=== PATIENT | male | born 1955 | race Caucasian/White ===

== ENCOUNTER → 2020-07-05 | Day surgery (SDC) | payer OTHER ==
[~2020-07-05] VITALS: Ht 180.3 cm; Wt 81.6 kg
[~2020-07-05] MED LIST: CRESTOR10 MG PO; ECOTRIN81 MG PO; FERROUS SULFAT325 MG PO; FISH OIL 1,0001 EAC1 PO; FOLIC ACID 1 MG1 MG PO; KEFLEX CAP 500500 MG PO; LEVOTHYROXINE137 MC1 PO; NIACIN1000 MG PO; PLAVIX75 MG PO; POTASSIUM99 M1 PO; VITAMIN D21250 MCG PO
[2020-07-05 07:05] LABS: RED BLOOD COUNT 5.66 M/UL (4.20-5.50); WHITE BLOOD COUNT 11.2 K/UL (4.5-11.0)
[2020-07-05 07:24] LABS: BUN/CREATININE RATIO 14 (0-10)
== END | disposition home or self-care (01) ==
LOC: OR 06:14
PROVIDERS: Orthopaedic Surgery
DX: S67.196A Crushing injury of right little finger, initial encounter (principal); S62.636A Displaced fracture of distal phalanx of right little finger, initial encounter for closed fracture; I25.10 Atherosclerotic heart disease of native coronary artery without angina pectoris; E78.5 Hyperlipidemia, unspecified; E07.9 Disorder of thyroid, unspecified; F17.210 Nicotine dependence, cigarettes, uncomplicated; Z95.1 Presence of aortocoronary bypass graft; W23.1XXA Caught, crushed, jammed, or pinched between stationary objects, initial encounter; Z79.02 Long term (current) use of antithrombotics/antiplatelets; Z79.82 Long term (current) use of aspirin; Z79.899 Other long term (current) drug therapy
CPT/HCPCS: 36415; 80048; 85025; J0690; J2001; J2250; J2704; J3010; J3370; J7120